=== PATIENT | male | born 1955 | race Caucasian/White ===

== ENCOUNTER 2019-01-27 13:14 | Inpatient (IN) | payer OTHER ==
[~2019-01-27] VITALS: Ht 170.2 cm; Wt 72.0 kg
[2019-01-27 13:19] VITALS: Ht 170.2 cm; Wt 72.0 kg
--- NOTE | 2019-01-27 13:22 | NUR ---
DR WELLS AT BEDSIDE
--- NOTE | 2019-01-27 13:37 | NUR ---
PT LYING IN BED, AAOX4 WITH C/O BLOODY EMESIS TODAY AND BLOODY STOOL X 3 DAYS WITH GENERALIZED WEAKNESS. PT STATES HE HAS A HX OF ULCERS/GI BLEED, THE LAST EPISODE BEING 6 MONTHS AGO. PT STATED HE WAS IN [facility] YESTERDAY FOR THE BLOODY STOOL. PT DENIES ANY RESP ILLNESS, FEVERS, OR PAINFUL URINATION AT THIS TIME. PT DENIES ANY TRAUMA/INJURY. SON AT BEDSIDE. PT PLACED ON MONITOR.
--- NOTE | 2019-01-27 13:56 | NUR ---
ASSISTED PT TO BEDSIDE COMMODE.
--- NOTE | 2019-01-27 14:06 | NUR ---
AGENCY DOCUMENTATION DONE BY Staff Name/Title - : SUZIE MOREL JR/ALEXA Well Done User ID - : [id number] Agency Name - : [employer] Time Documented - From - : 699 To - : 1929
--- NOTE | 2019-01-27 14:07 | NUR ---
ASSUMED PATIENT CARE, CONCUR TO PREVIOUS NURSING ASSESSMENTS.
[2019-01-27 14:09] LABS: PLATELET COUNT 100 x10^3mcL (130-400); RED CELL DISTRIBUTION WIDTH 19.4 % (11.5-14.5)
[2019-01-27 14:17] LABS: CALCIUM 7.5 mg/dL (8.5-10.1); CARBON DIOXIDE 18.7 mmol/L (21-32); CHLORIDE SERUM 104 mmol/L (98-107); GFR1 > 60 mL/min; GLUCOSE SERUM 367 mg/dL (74-106); POTASSIUM SERUM 4.1 mmol/L (3.5-5.1); SODIUM SERUM 138 mmol/L (136-145)
[2019-01-27 14:29] LABS: ALKALINE PHOSPHATASE 45 U/L (46-116); ALT/SGPT 53 U/L (16-63); AST/SGOT 39 U/L (15-37); BILIRUBIN TOTAL 1.1 mg/dL (0.20-1.00); LIPASE 104 IU/L (73-393); MAGNESIUM 1.7 mg/dL (1.8-2.4); T4(THYROXINE) 6.3 ug/dL (4.7-13.3)
[2019-01-27 14:30] LABS: CHOLESTEROL 54 mg/dL (<200); HDL CHOLESTEROL 18 mg/dL (40-60); TOTAL PROTEIN, SERUM 4.7 g/dL (6.4-8.2)
[2019-01-27 14:31] LABS: rbc morphology (normal/abnorm) ABNORMAL (NORMAL)
[2019-01-27 14:32] LABS: ovalocyte/elliptocyte 2+
[2019-01-27] MEDS ORDERED: PROPRANOLOL HCL10 MG PO (15:29)
[2019-01-27] MEDS ORDERED: LASIX40 MG PO (15:29)
[2019-01-27] MEDS ORDERED: METFORMIN HCL500 MG PO (15:30)
[2019-01-27] MEDS ORDERED: PEPCID20 MG PO (15:30)
[2019-01-27] MEDS ORDERED: FERROUS SULFAT325 M2 PO (15:30)
[2019-01-27] MEDS ORDERED: VITAMIN C60 MG PO (15:31)
[2019-01-27] MEDS ORDERED: LACTULOSE10 GM/152 PO (15:34)
--- NOTE | 2019-01-27 15:35 | NUR ---
MED REC COMPLETED USING RX/INFO FROM [facility]. LACTULOSE WAS TOLD TO TRIAGE NURSE BUT NOT SEEN ON RX/INFO. SONS DO NOT KNOW DOSAGE.
--- NOTE | 2019-01-27 15:48 | NUR ---
DISPO AND MEDICAL DECISION MAKING, INPATIENT ADMISSION FOR FURTHER MANAGEMENT. PATIENT CARE REPORT TO MARLO LIU. PATIENT ADMITTED TO THIS ICU.
[2019-01-27 15:51] LABS: CHOLESTEROL/HDL RATIO 3.2
--- NOTE | 2019-01-27 16:19 | NUR ---
RECEIVED PT FROM ED BY VIET. PT IS A/O X4. PT PRESENT WEAKNESS, ABLE TO MOVE FROM GURNEY TO BED. PT BREATHING ON RA, EVEN, UNLABORED. PT'S VS STABLE: BP 97/63, HR 110, O2 SAT 99% ON RA, TEMP 97.7. PT COMPLAIN OF NAUSEA. WILL CONTINUE PT CARE.
[2019-01-27 16:30] VITALS: BP 97/63
--- NOTE | 2019-01-27 16:40 | NUR ---
PATIENT IN NEED OF BLOOD TRANSFUSION. DWAYNE CONDE AT BEDSIDE. EDUCATION PROVIDED REGARDING BLOOD TRANSFUSION. CONSENT OBTAINED FROM PATIENT, WITNESSED BY MYSELF AND PLACED IN CHART.
--- NOTE | 2019-01-27 18:58 | NUR ---
PT COMPLAIN OF NAUSEA. ZOFRAN GIVEN PER PRN ORDER. START 1 UNIT BLOOD TRANSFUSION, TYLENOL, BENADRYL GIVEN PER PRN. PT'S DAUGHTER AT BED SIDE.
--- NOTE | 2019-01-27 19:12 | NUR ---
RECEIVED REPORT FROM GERALDO LIU. WILL RESUME CARE.
[2019-01-27 19:25] VITALS: BP 134/71
--- NOTE | 2019-01-27 19:27 | NUR ---
ENDORSE PT CARE TO COMING NURSE. BLOOD IS TRANSFUSING. PT'S FAMILY AT BED SIDE.
--- NOTE | 2019-01-27 21:46 | NUR ---
BLOOD TRANSFUSION FINISHED. POST VS: T 97.9, HR 108, B/P 109/71, R 16, O2SAT 96%. PT TOLERATED WELL. NO ADVERSE REACTIONS NOTED.
[2019-01-27 23:23] VITALS: BP 102/75
[2019-01-28 03:21] VITALS: BP 110/59
--- NOTE | 2019-01-28 03:21 | NUR ---
ASSESSED PT WHO IS RESTING COMFORTABLY IN BED. BREATHING E/U. PT STATES NO PAIN OR NAUSEA AT THIS TIME. NAD NOTED. WILL CONTINUE TO MONITOR.
--- NOTE | 2019-01-28 04:15 | NUR ---
DIRECTOR OF CAREER SERVICES AT BEDSIDE FOR BLOOD DRAW.
[2019-01-28 04:59] LABS: BASOPHIL % 0.5 % (0-2)
[2019-01-28 05:10] LABS: PLATELET COUNT 82 x10^3mcL (130-400)
[2019-01-28 05:11] LABS: RED CELL DISTRIBUTION WIDTH 22.2 % (11.5-14.5)
[2019-01-28 05:18] LABS: rbc morphology (normal/abnorm) ABNORMAL (NORMAL)
[2019-01-28 05:19] LABS: ovalocyte/elliptocyte 1+
--- NOTE | 2019-01-28 06:46 | NUR ---
Called to relayed lab results with no answer, left a message and awaiting call back.
--- NOTE | 2019-01-28 07:06 | NUR ---
GAVE REPORT TO KAITLYNN LIU. ALL QUESTIONS AND CONCERNS ADDRESSED.
--- NOTE | 2019-01-28 07:07 | NUR ---
RECIEVED REPORT FROM ALEXA CHOW TO ASSUME ALL CARES. ALL QUESTIONS AND CONCERNS ADDRESSED. WILL CONTINUE TO MONITOR.
[2019-01-28 08:30] VITALS: BP 113/75
[2019-01-28 09:06] LABS: microscopic required? NO
--- NOTE | 2019-01-28 09:15 | NUR ---
EGD DONE WITH DR. ESTRADA AND THE GI TEAM. SEE PROGRESS NOTES REGARDING EGD PROCEDURE. VSS. WILL CONTINUE TO MONITOR.
[2019-01-28 09:31] LABS: AMPHETAMINE QUAL UR NONE DETECTED (See below)
--- NOTE | 2019-01-28 10:17 | NUR ---
DR. ESTRADA AT BEDSIDE UPDATING PATIENT AND PATIENT'S DAUGHTER REGARDING EGD RESULTS AND POC. WILL CONTINUE TO MONITOR.
[2019-01-28 10:51] LABS: UA SPECIFIC GRAVITY 1.025 (1.005-1.035); urine erythrocyte NEGATIVE (NEGATIVE)
[2019-01-28 11:03] LABS: CALCIUM 7.6 mg/dL (8.5-10.1); CARBON DIOXIDE 21.7 mmol/L (21-32); CHLORIDE SERUM 109 mmol/L (98-107); CREATININE SERUM 0.9 mg/dL (0.7-1.3); GFR1 > 60 mL/min; GLUCOSE SERUM 254 mg/dL (74-106); POTASSIUM SERUM 4.2 mmol/L (3.5-5.1); SODIUM SERUM 140 mmol/L (136-145)
[2019-01-28 11:40] VITALS: BP 110/66
[2019-01-28 15:13] VITALS: BP 150/75
--- NOTE | 2019-01-28 17:25 | NUR ---
REPORT GIVEN TO MADHURI, RN TO ASSUME ALL CARES UPON TRANSFER. ALL QUESTIONS AND CONCERNS ADDRESSED. MADHURI TO CALL WHEN ROOM IS READY.
--- NOTE | 2019-01-28 18:09 | NUR ---
RECEIVED PT FROM ICU VIA WHEELCHAIR, PT IS AAOX4. NO S/S OF PAIN AND SOB NOTED. NO S/S OF BLEEDING NOTED AT THIS TIME. IV SITE PATENT AND INTACT. RECEIVED PT W/ SANDOSTATIN ONGOING AT 25 ML/HR. FAMILY AT BEDSIDE. SIDE RAILS UPX2. CALL LIGHT ON REACH. BEDSIDE REPORT GIVEN TO PRIMARY NURSE MADHURI FOR CONTINUITY OF CARE
[2019-01-28 18:10] VITALS: BP 127/62
--- NOTE | 2019-01-28 18:28 | NUR ---
PATIENT TRANSFERRED VIA WHEELCHAIR ACCOMPANIED BY NURSE. NO INCIDENCE OCCURRED.
--- NOTE | 2019-01-28 18:48 | NUR ---
PT LAYING IN BED WITH HOB ELEVATED. NO S/S OF ACUTE DISTRESS. MED-SURG. NO SOB ON ROOM AIR. NO ABD. PAIN AT THIS TIME. NO N/V. NO FEVER, NO CHILLS. AMBULATORY WITH FULL ROM, GAIT STEADY. IV WNL LH, RFA, NO REDNESS, NO SWELLING, NO INFILTRATION. PATENT AND FLUSH WELL. SANDOSTATIN RUNNING AT 25ML/HR. NS RUNNING AT 50ML/HR. PT CALM/COOPERATIVE. SIDE RAILS UP X2. BED IN LOW POSITION. CALL LIGHT WITHIN REACH. FAMILY AT BEDSIDE. WILL ENDORSE TO ONCOMING SHIFT.
--- NOTE | 2019-01-28 19:50 | NUR ---
AWAKE AND ALERT, ORIENTED TO NAME, PLACE, TIME AND SITUATION. HOB ELEVATED 45 DEG. BREATHING EVEN AND UNLABORED ON ROOM AIR. MED SURG PT. DENIES HAVING CHEST PAIN OR CHEST DISCOMFORT. ON SANDOSTATIN DRIP AT 25ML/HR. IVF OF NS AT 50ML/HR. IV SITE TO RIGHT FOREARM FREE FROM ERYTHEMA OR SWELLING. DENIES HAVING NAUSEA OR ABDOMINAL PAIN. FAMILY MEMBERS IN ROOM.
[2019-01-28 20:36] VITALS: BP 138/72
--- NOTE | 2019-01-28 23:35 | NUR ---
STATED HAVING HYPERACIDITY, INFORMED DR. CAUSEY
--- NOTE | 2019-01-28 23:37 | NUR ---
NEW ORDER RECEIVED, WAITING FOR PHARMACIST TO VERIFY
--- NOTE | 2019-01-29 00:58 | NUR ---
EYES CLOSED, HOB ELEVATED 30 DEG. NO GRIMACING OR MOANING NOTED. BREATHING EVEN AND UNLABORED. IVF OF NS AT 50ML/HR. SANDOSTATIN AT 50MCG/HR (25ML/HR). CALL LIGHT WITHIN EASY REACH.
[2019-01-29 05:25] VITALS: BP 95/48
--- NOTE | 2019-01-29 05:27 | NUR ---
BP 95/48, INFORMED DR. CAUSEY. HE STATED TO HOLD DUE INDERAL DOSE. HE STATED HE WILL PUT IN ORDER FOR A BOLUS.
--- NOTE | 2019-01-29 06:49 | NUR ---
PT STATED PASSED STOOL EARLIER THIS AM, YELLOW IN COLOR. KEPT NPO FOR US ABD. STATED FELT MUCH BETTER AFTER TAKING FAMOTIDINE LAST NIGHT. IVF INFUSING AT 150ML/HR X 1 LITER. SANDOSTATIN INFUSING AT 50MCG/ML. IV SITE FREE FROM ERYTHEMA OR SWELLING.
--- NOTE | 2019-01-29 07:05 | NUR ---
RECEIVED PT FROM CAITLIN DIALLO. PT FOUND RESTING IN BED WITH BOTH EYES CLOSED. EASILY AROUSABLE TO VERBAL STIMULI, FACE SYMMETRICAL, SPEECH CLEAR. DENIES PAIN AT THIS TIME. NO N/V. NO FARRIS. NO DIZZINESS. NO SOB ON ROOM AIR. CALM/COOPERATIVE. BED IN LOW POSITION. CALL LIGHT WITHIN REACH. SIDE RAILS UP X2. INSTRUCTED PT TO USE CALL LIGHT TO CALL FOR ASSISTANCE PRN. VERBALIZED UNDERSTANDING. WILL CONTINUE TO MONITOR.
--- NOTE | 2019-01-29 07:06 | NUR ---
EYES CLOSED, BREATHING EVEN AND UNLABORED. ENDORSED TO NURSE MADHURI
[2019-01-29 07:24] LABS: BASOPHIL % 0.4 % (0-2)
[2019-01-29 07:41] LABS: PLATELET COUNT 93 x10^3mcL (130-400); RED CELL DISTRIBUTION WIDTH 22.9 % (11.5-14.5)
[2019-01-29 08:12] LABS: CALCIUM 7.1 mg/dL (8.5-10.1); CARBON DIOXIDE 24.3 mmol/L (21-32); CHLORIDE SERUM 107 mmol/L (98-107); CREATININE SERUM 0.6 mg/dL (0.7-1.3); GFR1 > 60 mL/min; GLUCOSE SERUM 147 mg/dL (74-106); MAGNESIUM 1.6 mg/dL (1.8-2.4); POTASSIUM SERUM 3.8 mmol/L (3.5-5.1); SODIUM SERUM 140 mmol/L (136-145)
[2019-01-29 09:00] VITALS: BP 112/66
[2019-01-29 12:08] VITALS: BP 110/64
--- NOTE | 2019-01-29 12:15 | NUR ---
PT LAYING IN BED RESTING WITH BOTH EYES CLOSED. NO S/S OF ACUTE DISTRESS. EASILY AROUSABLE TO VERBAL STIMULI. FACE SYMMETRICAL. SPEECH CLEAR. NO BM TODAY. NO SOB ON ROOM AIR. NO CHEST PAIN. IVS WNL, SANDOSTATIN RUNNING AT 25ML/HR. NO REDNESS, NO SWELLING, NO INFILTRATION. PT DENIES ABD. PAIN. NO N/V/D. PT CALMCOOPERATIVE. BED IN LOW POSITION. CALL LIGHT WITHIN REACH. VOIDS FREELY WITH URINAL. WILL CONTINUE TO MONITOR.
[2019-01-29 17:54] VITALS: BP 108/63
--- NOTE | 2019-01-29 18:54 | NUR ---
PT LAYING IN BED. AA/OX4. DENIES PAIN. NO N/V. NO SOB ON ROOM AIR. NO CHEST PAIN. CALM/COOPERATIVE. NO DIZZINESS. NO FARRIS. IVS WNL, IV FLUIDS FLOWING. BED IN LOW POSITION. CALL LIGHT WITHIN REACH. SIDE RAILS UP X2. AMBULATORY TO RESTROOM WITH FULL ROM, GAIT STEADY. WILL ENDORSE TO ONCOMING SHIFT.
[2019-01-29 20:52] VITALS: BP 109/56
--- NOTE | 2019-01-29 20:55 | NUR ---
GOT 1 UNIT PRBC FROM LAB UNIT #[id number]. PT MR# AND v# MATCH, PT O POSITIVE, DONOR O POSITIVE. NOTED BIRTHDAY ON [place] IS [birth year], WHILE ON BLOOD BANK RECORD IS 56. PT STATED THERE THE CORRECT BDAY IS 56 AND THAT THE 57 BDAY WAS NOTED WHEN HE WAS IN ICU AND CORRECTED. CALLED BLOOD BANK, NERISSA OF BLOOD BANK CAME UP TO VERIFY THAT ARM BAND [id number] IS CORRECT AND MATCHES THAT OF PT AND THAT CROSSMATCH IS CORRECT. STATED OK TO TRANSFUSE. PRE TRANSFUSION VITAL SIGNS T 98.5, ID 72, BP 109/56, RR 18, O2 SAT 92% ON ROOM AIR. PRBC AND PT VERIFIED WITH NURSE HOWER. STARTED TRANSFUSION RATE AT INITIAL RATE OF 60ML/HR PER FACILITY PROTOCOL.
--- NOTE | 2019-01-29 21:04 | NUR ---
AFTER 15 MINUTES OF TRANSFUSION, PT HAS NO BLOOD TRANSFUSION REACTIONS. BREATHING EVEN AND UNLABORED ON ROOM AIR. DENIES HAVING PAIN. T 98.6, VA 72, BP 101/57, RR 18, O2 SAT 93%. INCREASED TRANSFUSION RATE TO 110ML/HR.IV SITE TO LEFT AC WHERE BLOOD TRANFUSION IS GOING IS FREE FROM ERYTHEMA OR INFILTRATION.
--- NOTE | 2019-01-29 21:16 | NUR ---
INFORMED DR. HUERTA STARTED BLOOD TRANSFUSION. STATED OK NOT TO ADMINISTER BENADRYL AND TYLENOL BUT TO CALL HIM IF PT DEVELOPS ANY REACTIONS.
--- NOTE | 2019-01-29 22:06 | NUR ---
BLOOD TRANFUSING WELL. NO SIGNS AND SYMPTOMS OF INFILTRATION, OR BLOOD TRANFUSION REACTIONS. BREATHING EVEN AND UNLABORED. EYES CLOSED, CALL LIGHT WITHIN EASY REACH.
--- NOTE | 2019-01-29 22:15 | NUR ---
LATE ENTRY: 2000H - AWAKE AND ALERT, ORIENTED TO NAME, PLACE, TIME AND SITUATION. SPEECH CLEAR AND APPROPRIATE. BREATHING EVEN AND UNLABORED ON ROOM AIR. DENIES HAVING NAUSEA OR PAIN. COMPLETING BOWEL PREP. ENCOURAGED TO DRINK MORE WATER. FERLICIT INFUSING TO RIGHT FOREARM IV, IV SITE FREE FROM ERYTHEMA OR SWELLING. SANDOSTATIN NOT INFUSING AT THIS TIME, PT STATED IV SITE TO LEFT HAND TENDER. IV REMOVED. NEW IV INSERTED BY NURSE LELAND TO LEFT AC BY NURSE LELAND, 20G. FLUSHED WELL. CALL LIGHT WITHIN EASY REACH.
--- NOTE | 2019-01-29 23:26 | NUR ---
PT STATED HE WANTS MEDICATION TO HELP HIM SLEEP. INFORMED DR. CAUSEY
--- NOTE | 2019-01-29 23:40 | NUR ---
AMBULATED TO RESTROOM, PASSED STOOL, APPEARS CLEAR YELLOW, BUT STILL WITH SOLID PARTICLES
--- NOTE | 2019-01-30 00:35 | NUR ---
BLOOD TRANSFUSION COMPLETED. NO TRANSFUSION REACTIONS NOTED. IV TO LEFT AC FLUSHED WELL. NO ERYTHEMA OR INFILTRATION NOTED TO LEFT AC IV. SALINE LOCKED.
--- NOTE | 2019-01-30 00:41 | NUR ---
KEPT NPO AFTER MIDNIGHT.
--- NOTE | 2019-01-30 02:15 | NUR ---
EYES CLOSED, BREATHING UNLABORED. SANDOSTATING INFUSING WELL AT 50MCG/HR. CALL LIGHT WITHIN EASY REACH.
--- NOTE | 2019-01-30 04:10 | NUR ---
2ND PART OF SUREPREP BOWEL PREP STARTED.
[2019-01-30 05:47] VITALS: BP 106/64
--- NOTE | 2019-01-30 06:16 | NUR ---
2ND PART BOWEL PREP WAS COMPLETED. PT PASSING CLEAR STOOL.
--- NOTE | 2019-01-30 06:21 | NUR ---
EYES CLOSED, EASILY AWAKENED. BREATHING EVEN AND UNLABORED ON ROOM. KEPT NPO EXCEPT MEDICATIONS AND BOWEL PREP. HOB KEPT ELEVATED 45 DEG. CALL LIGHT WITHIN EASY REACH. SANDOSTATIN INFUSING TO IV TO RIGHT FOREARM AT 50MCG/HR (25ML/HR). SALINE LOCK TO LEFT AC.
[2019-01-30 07:00] LABS: CALCIUM 7.7 mg/dL (8.5-10.1); CARBON DIOXIDE 23.5 mmol/L (21-32); CHLORIDE SERUM 112 mmol/L (98-107); CREATININE SERUM 0.8 mg/dL (0.7-1.3); GFR1 > 60 mL/min; GLUCOSE SERUM 146 mg/dL (74-106); SODIUM SERUM 145 mmol/L (136-145)
--- NOTE | 2019-01-30 07:11 | NUR ---
EYES CLOSED, EASILY AWAKENED. NPO. BREATHING UNLABORED. ENDORSED TO NURSE TATYANA
[2019-01-30 07:43] LABS: BASOPHIL % 0.6 % (0-2)
--- NOTE | 2019-01-30 08:04 | NUR ---
AAO TIMES 4. NO TELE. MED SURG PATIENT. LUNGS CTA. NO SOB. O2 SAT ON RA 97%. BS'S ACTIVE TIMES 4. ABDOMEN SOFT AND DISTENDED. HERRON STRONG. IV SITE RFA AND LAC PATENT, CDI. COOPERATIVE. PER NOC SHIFT REPORT, HIS BOWEL MOVMENTS ARE CLEAR AND HE IS READY FOR HIS COLONOSCOPY. PERIPHERAL PULSES PALPABLE. NO EDEMA. NO C/O PAIN. HE IS SLEEPY BUT AROUSABLE.
[2019-01-30 08:10] LABS: PLATELET COUNT 99 x10^3mcL (130-400); RED CELL DISTRIBUTION WIDTH 23.3 % (11.5-14.5)
[2019-01-30] MEDS ORDERED: AMOXICILLIN500 MG PO (10:05)
[2019-01-30] MEDS ORDERED: BIA500 PO (10:05)
--- NOTE | 2019-01-30 10:41 | NUR ---
BACK FROM GI LAB AT 1028. TEMP 97.3, HR 60, RESP 16, BP 97/56, O2 SAT 99% ON RA. SANDOSTATIN DRIP INFUSING AT 50 MCG PER HOUR/25 ML PER HOUR.
[2019-01-30 11:55] VITALS: BP 100/69
--- NOTE | 2019-01-30 13:20 | NUR ---
GAVE DISCHARGE INSTRUCTIONS TO HIM AND HIS DAUGHTER. I REMOVED THE SL TO LAC AND RFA ANGIO INTACT. HE VERBALIZED "I UNDERSTAND" TO ALL INSTRUCTIONS AN PRESCRIPTION.
== END 2019-01-30 13:40 | disposition home or self-care (01) ==
LOC: ED 13:14 → MU 15:13 → EDBD 15:13 → IC 15:13 → MU 01-28 18:06
PROVIDERS: Emergency Medicine; Internal Medicine; Internal Medicine Gastroenterology; ADMIT General Practice
PROC: 30233N1 Transfusion of Nonautologous Red Blood Cells into Peripheral Vein, Percutaneous Approach (ICD-10-PCS; 2019-01-27)
PROC: 0DB68ZX Excision of Stomach, Via Natural or Artificial Opening Endoscopic, Diagnostic (ICD-10-PCS; principal; 2019-01-28 10:00)
PROC: 06L38CZ Occlusion of Esophageal Vein with Extraluminal Device, Via Natural or Artificial Opening Endoscopic (ICD-10-PCS; 2019-01-28 10:00)
PROC: 0DBN8ZZ Excision of Sigmoid Colon, Via Natural or Artificial Opening Endoscopic (ICD-10-PCS; 2019-01-30)
PROC: 0DBH8ZZ Excision of Cecum, Via Natural or Artificial Opening Endoscopic (ICD-10-PCS; 2019-01-30 09:00)
DX: K74.60 Unspecified cirrhosis of liver (principal); I85.11 Secondary esophageal varices with bleeding; D69.6 Thrombocytopenia, unspecified; K76.6 Portal hypertension; K72.90 Hepatic failure, unspecified without coma; E11.65 Type 2 diabetes mellitus with hyperglycemia; R18.8 Other ascites; K63.5 Polyp of colon; E86.0 Dehydration; K29.80 Duodenitis without bleeding; I10 Essential (primary) hypertension; K64.8 Other hemorrhoids; F12.90 Cannabis use, unspecified, uncomplicated; B18.2 Chronic viral hepatitis C; D50.0 Iron deficiency anemia secondary to blood loss (chronic); F17.210 Nicotine dependence, cigarettes, uncomplicated; Z79.84 Long term (current) use of oral hypoglycemic drugs
CPT/HCPCS: 36600; 43235; 45378; 82962; 83880; 99406; C9113; G0378; G0480; J0171; J0690; J0696; J1200; J1610; J1815; J2250; J2310; J2354; J2405; J2916; J3010; J3490; J7030; J7040; J7050; P9016; Q0092